=== PATIENT | male | born 1960 | race Two or more races ===

== ENCOUNTER 2018-11-05 19:56 | Emergency (ER) | payer OTHER ==
[~2018-11-05] VITALS: Ht 172.7 cm; Wt 76.3 kg
[~2018-11-05 19:56] MED LIST: BACTDS PO; CEPH-443 PO; IBUP-1542 PO; SODI126M NASAL
[2018-11-05 19:59] VITALS: Ht 172.7 cm; Wt 76.3 kg
[2018-11-05] MEDS ORDERED: KETOROLAC 60 MG INJ IM STA (20:16)
[2018-11-05 22:32] VITALS: BP 137/92; PULSE 100; RESP 16
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
== END 2018-11-05 22:33 | disposition home or self-care (01) ==
LOC: FTE 19:56
DX: S99.922A Unspecified injury of left foot, initial encounter (principal); S79.912A Unspecified injury of left hip, initial encounter; S89.92XA Unspecified injury of left lower leg, initial encounter; F17.210 Nicotine dependence, cigarettes, uncomplicated; V29.9XXA Motorcycle rider (driver) (passenger) injured in unspecified traffic accident, initial encounter
CPT/HCPCS: 72170; 73562; 73630; 96372; J1885; Z7502; Z7610